=== PATIENT | female | born 1945 | race Caucasian/White ===

== ENCOUNTER → 2018-10-05 | Outpatient (CLI) | payer OTHER | LOC: GIMAGING 11:58 | PROVIDERS: ATTEND Family Medicine | DX: R14.3 Flatulence (principal) | CPT/HCPCS: 74018-PO ==

== ENCOUNTER 2018-12-16 18:56 | Emergency (ER) | payer OTHER ==
[2018-12-16] MEDS ORDERED: ONDANSETRON 4 MG/2 ML VIAL IVP ONE (19:31)
[2018-12-16] MEDS ORDERED: NS 1,000 ML IV ONE (19:31)
[2018-12-16 19:42] LABS: PLATELET COUNT 330 10^3/uL (150-400)
[2018-12-16] MEDS ORDERED: IOPAMIDOL (ISOVUE-300) 100 ML BTL ONE (20:42)
--- NOTE | 2018-12-16 20:42 | EDPHY ---
H & P Time Seen by Provider: 12/16/18 19:31 HPI/ROS: HPI Abdominal pain. 73-year-old female by private vehicle. She has a history of breast cancer and a right-sided mastectomy. She states that she currently lives independently in [place] but is under hospice care. She presents to the emergency department with complaint of periumbilical abdominal pain starting at 12 noon today. She states that her last meal was breakfast earlier this morning. She has not had any associated nausea or vomiting. Denies diarrhea. Last bowel movement was shortly before arrival. No bloody or melenic stool. No prior abdominal surgical history. ROS: Constitutional: No fever, no chills. No weakness. Eyes: No discharge. No changes in vision. ENT: No sore throat. No nasal congestion or rhinorrhea. Respiratory: No cough. No shortness of breath. Cardiac: No chest pain, no palpitations. Gastrointestinal: As above, no vomiting, no diarrhea. Genitourinary: No hematuria. No dysuria or increased frequency with urination. Musculoskeletal: No back pain. No neck pain. No myalgias or arthralgias. Skin: No rashes. Neurological: No headache. No focal weakness or altered sensation. Past medical history: As above. Social history: Nonsmoker. As above. No alcohol. Physical Exam: General Appearance: Alert, no distress. This patient is responding to questions appropriately and in full sentences. This patient appears well- hydrated and well-nourished. Eyes: Pupils equal and round no pallor or injection. No lid edema, erythema or injection. Respiratory: There are no retractions, lungs are clear to auscultation with good air movement bilaterally. Cardiovascular: Regular rate and rhythm. No murmur. Gastrointestinal: Abdomen is soft with vague periumbilical tenderness on palpation, no masses, bowel sounds normal. No focal tenderness at McBurney's point. No [place] sign. Neurological: Motor sensory function is grossly intact. Cranial nerves are normal. Gait is normal. Skin: Warm and dry, no rashes. Musculoskeletal: Neck is supple and nontender. Extremities are symmetrical. All joints range without pain or impingement. Psychiatric: No agitation. No depression. Database: EKG: Imaging: CT abdomen and pelvis with IV contrast: No evidence of acute surgical obstructive process. Constipation noted. Case discussed with staff radiologist Dr. Freddy Sharif. Please see his report for further details. Procedures: Emergency department course: Triage vital signs reviewed, she is hypertensive. Vital signs are otherwise normal. IV was placed. She was started on IV normal saline with 500 cc to 1 L to be given over the next hour. She initially declines pain medication and anti medics. 8:40 p.m., patient re-evaluated, she appears comfortable at this time. CT imaging of the abdomen pelvis to be obtained to evaluate for early appendicitis. She endorses this study. 11:00 p.m., the patient was re-evaluated, resting comfortably at this time. She denies any significant pain. She has been drinking fluids without issue. She has had no vomiting in the emergency department. Repeat abdominal exam he is soft and completely nontender on palpation throughout her abdomen. Results of her CT imaging as well as urinalysis and blood work discussed with her. At this time I feel she can go home. I discussed treatment for constipation with magnesium citrate. I will send her home with a bottle of this medication. I stressed return to emergency department precautions with her. She feels comfortable going home. Follow-up was discussed. All of her questions were answered. She was discharged from the emergency department in good Differential Diagnosis: The differential diagnosis on this patient includes but is not limited to constipation appendicitis, cholecystitis. This represents a partial list of diagnoses considered. These considerations are based on history, physical exam , past history, reassessment and diagnostic testing. Smoking Status: Never smoked Constitutional: Initial Vital Signs Temperature (C) 36.7 C 12/16/18 19:00 Heart Rate 81 12/16/18 19:00 Respiratory Rate 16 12/16/18 19:00 Blood Pressure 169/106 H 12/16/18 19:00 O2 Sat (%) 98 12/16/18 19:00 O2 Delivery Mode Room Air Allergies/Adverse Reactions: No Known Allergies Allergy (Verified 03/22/16 10:30) Home Medications: Medication Instructions Recorded NK [No Known Home Meds] 12/16/18 Medical Decision Making - Diagnostics Imaging Results: Imaging Impressions Abdomen CT 12/16/18 20:36 Impression: 1. Fecalization of mid to distal ileum in the pelvis that could be related to underlying constipation of the large bowel. 2. Mild swirling of small bowel within the pelvis with possible underlying adhesion but no significant dilatation of bowel loops proximal to this at this time. The clinical significance is questionable therefore. 3. Large right renal cysts. 4. Small umbilical hernia containing omental fat. 5. 1 mm nonobstructive calculi left kidney. Findings discussed with Vandana Prieto MD at 22:37 hour, 12/16/2018. - Data Points Laboratory Results: Laboratory Results 12/16/18 19:28 12/16/18 19:28 12/16/18 12/16/18 12/16/18 19:30 19:28 19:28 WBC 7.36 10^3/uL 10^3/uL (3.80-9.50) RBC 4.45 10^6/uL 10^6/uL (4.18-5.33) Hgb 14.4 g/dL g/dL (12.6-16.3) Hct 43.1 % % (38.0-47.0) MCV 96.9 fL fL (81.5-99.8) MCH 32.4 pg pg (27.9-34.1) MCHC 33.4 g/dL g/dL (32.4-36.7) RDW 13.7 % % (11.5-15.2) Plt Count 330 10^3/uL 10^3/uL (150-400) MPV 8.2 fL L fL (8.7-11.7) Neut % (Auto) 65.9 % % (39.3-74.2) Lymph % (Auto) 24.0 % % (15.0-45.0) [place] % (Auto) 6.5 % % (4.5-13.0) Eos % (Auto) 2.0 % % (0.6-7.6) Baso % (Auto) 1.2 % % (0.3-1.7) Nucleat RBC Rel Count 0.0 % % (0.0-0.2) Absolute Neuts (auto) 4.84 10^3/uL 10^3/uL (1.70-6.50) Absolute Lymphs (auto) 1.77 10^3/uL 10^3/uL (1.00-3.00) Absolute Monos (auto) 0.48 10^3/uL 10^3/uL (0.30-0.80) Absolute Eos (auto) 0.15 10^3/uL 10^3/uL (0.03-0.40) Absolute Basos (auto) 0.09 10^3/uL 10^3/uL (0.02-0.10) Absolute Nucleated RBC 0.00 10^3/uL 10^3/uL (0-0.01) Immature Gran % 0.4 % % (0.0-1.1) Immature Gran # 0.03 10^3/uL 10^3/uL (0.00-0.10) Sodium 139 mEq/L mEq/L (135-145) Potassium 4.1 mEq/L mEq/L (3.5-5.2) Chloride 106 mEq/L mEq/L (97-110) Carbon Dioxide 20 mEq/l L mEq/l (22-31) Anion Gap 13 mEq/L mEq/L (6-14) BUN 28 mg/dL H mg/dL (7-23) Creatinine 0.7 mg/dL mg/dL (0.6-1.0) Estimated GFR > 60 Glucose 102 mg/dL H mg/dL (70-100) Calcium 9.9 mg/dL mg/dL (8.5-10.4) Total Bilirubin 0.4 mg/dL mg/dL (0.1-1.4) Conjugated Bilirubin 0.0 mg/dL mg/dL (0.0-0.5) Unconjugated Bilirubin 0.4 mg/dL mg/dL (0.0-1.1) AST 33 IU/L IU/L (14-46) ALT 31 IU/L IU/L (9-52) Alkaline Phosphatase 64 IU/L IU/L (38-126) Total Protein 7.6 g/dL g/dL (6.3-8.2) Albumin 4.7 g/dL g/dL (3.5-5.0) Lipase 164 IU/L IU/L (23-300) Urine Color YELLOW Urine Appearance CLEAR Urine pH 6.0 (5.0-7.5) Ur Specific [place] 1.012 (1.002-1.030) Urine Protein NEGATIVE (NEGATIVE) Urine Ketones TRACE H (NEGATIVE) Urine Blood NEGATIVE (NEGATIVE) Urine Nitrate NEGATIVE (NEGATIVE) Urine Bilirubin NEGATIVE (NEGATIVE) Urine Urobilinogen NEGATIVE EU EU (0.2-1.0) Ur Leukocyte Esterase NEGATIVE (NEGATIVE) Urine RBC 1-3 /hpf /hpf (0-3) Urine WBC 1-3 /hpf /hpf (0-3) Ur Epithelial Cells TRACE /lpf /lpf (NONE-1+) Urine Mucus TRACE /lpf /lpf (NONE-1+) Urine Glucose NEGATIVE (NEGATIVE) Medications Given: Discontinued Medications Sodium Chloride (Ns) 1,000 mls @ 0 mls/hr IV EDNOW ONE; Wide Open PRN Reason: Protocol Stop: 12/16/18 19:32 Last Admin: 12/16/18 20:02 Dose: 1,000 mls Ondansetron HCl (Zofran) 4 mg IVP EDNOW ONE Stop: 12/16/18 19:32 Last Admin: 12/16/18 20:03 Dose: 4 mg Departure - Departure Disposition: Home, Routine, Self-Care Clinical Impression: Abdominal pain, Constipation Condition: Good Instructions: Acute Abdominal Pain (ED), Constipation (ED), High Fiber Diet (ED ) Additional Instructions: Read and follow provided instructions. Follow-up with your primary care physician on Monday or Monday of this week for re-evaluation. Drink contents of magnesium citrate at home. Be near a bathroom. This will induce a bowel movement. Most important, return to the emergency department for return of abdominal pain , persisting pain, fever, vomiting or other serious concerns. Referrals: Rashawn Nolan, [Primary Care Provider] - As per Instructions
[2018-12-16 22:56] VITALS: BP 144/72
[2018-12-16] MEDS ORDERED: MAGNESIUM CITRATE 300 ML BOTTLE PO ONE (23:11)
== END 2018-12-16 23:44 | disposition home or self-care (01) ==
DX: R10.33 Periumbilical pain (principal); K59.00 Constipation, unspecified; E86.9 Volume depletion, unspecified
CPT/HCPCS: 74177; 96361; 96374; 99285; J2405; Q9967